=== PATIENT | male | born 1995 | race Caucasian/White ===

== ENCOUNTER 2018-10-27 10:15 | Outpatient (CLI) | payer OTHER ==
--- NOTE | 2018-10-27 12:58 | MRI ---
EXAM: MRI right thumb PROVIDED CLINICAL HISTORY: Thumb MCP injury COMPARISON: None FINDINGS: There is a prominently thickened and T2 hyperintense appearance to the distal, thumb phalangeal base aspects of the ulnar collateral ligament with well-defined insertional fibers not apparent. There is a focal area of T1 and T2 hypointensity interposed between the superficial margin of the intact ul supa collateral ligament and adjacent abductor insertion suspicious for Stener lesion. The radial collateral ligament appears intact. The thumb extensor and common flexor tendons appear in tact. There is a small thumb MCP joint effusion. Regional marrow and muscular signal appear normal. IMPRESSION: Findings compatible with thumb MCP ulnar collateral ligament tear with findings suspicious for Stener lesion.
== END 2018-10-27 10:16 | disposition home or self-care (01) ==
LOC: SCSMRI 10:15
PROVIDERS: ATTEND Orthopaedic Surgery Hand Surgery
DX: S63.641A Sprain of metacarpophalangeal joint of right thumb, initial encounter (principal)

== ENCOUNTER 2018-11-09 09:59 | Outpatient (CLI) | payer OTHER ==
[2018-11-09 17:04] LABS: #Basophils 0.1 thou/uL (0.0-0.2); #Eosinphils 0.3 thou/uL (0.0-0.7); #Lymphocytes 2.8 thou/uL (1.20-3.40); #Monocytes 0.7 thou/uL (0.11-0.59); #Neutrophils 4.4 thou/uL (1.40-6.50); %Basophils 0.8 % (0.0-1.0); %Eosinophils 3.6 % (0.0-10.0); %Lymphocytes 33.7 % (21.0-51.0); %Monocytes 8.2 % (0.0-10.0); %Neutrophils 53.8 % (42.0-75.0); Hemoglobin 15.6 g/dL (14.0-18.0); Mean Corpuscular HGB CONC 34.6 g/dL (32.0-36.0); Mean Corpuscular Hemoglobin 31.7 pg (27.0-31.0); Mean Corpuscular Volume 91.7 fL (78.0-98.0); Mean Platelet Volume 7.7 fL (7.4-10.4); Platelet Count 334 thou/uL (130-400); RBC Distribution Width 11.2 % (11.5-14.5); Red Blood Cell (RBC) Count 4.92 mill/uL (4.70-6.10); White Blood Cell (WBC) Count 8.2 thou/uL (4.8-10.8)
== END 2018-11-09 10:00 | disposition home or self-care (01) ==
LOC: LABBT 09:59
PROVIDERS: ATTEND Orthopaedic Surgery Hand Surgery
DX: Z01.812 Encounter for preprocedural laboratory examination (principal); S63.681A Other sprain of right thumb, initial encounter
CPT/HCPCS: 85025

== ENCOUNTER 2018-11-10 09:43 | Day surgery (SDC) | payer OTHER ==
[2018-11-09 15:57] VITALS: BMI 27.0
[2018-11-10] MEDS ORDERED: Bupivacaine HCl 0.5%/Epinephrine 1:200,000/PF 30 ml Vial ONE (10:51)
[2018-11-10] MEDS ORDERED: Midazolam HCl 2 mg/2 ml Vial ONE (11:30)
[2018-11-10] MEDS ORDERED: Fentanyl 100 MCG/2 ML VIAL ONE ×2 (11:31→13:08)
[2018-11-10] MEDS ORDERED: Ondansetron PF 4 MG/2 ML Vial ONE (11:37)
[2018-11-10] MEDS ORDERED: Lidocaine 1% PF 5 ML VIAL ONE (11:37)
[2018-11-10] MEDS ORDERED: Dexamethasone 20 MG/5 ML VIAL ONE (11:37)
[2018-11-10] MEDS ORDERED: PROPOFOL 200 MG/20 ML VIAL ONE (11:37)
[2018-11-10] MEDS ORDERED: Sodium Chloride 0.9% 10 ML ONE (13:01)
[2018-11-10] MEDS ORDERED: Bacitracin Zinc Ointment 30 gm TUBE ONE (13:01)
[2018-11-10] MEDS ORDERED: Betamet Acet/Betamet Na Ph 30 MG/5 ML VIAL ONE (13:02)
[2018-11-10] MEDS ORDERED: Famotidine/PF 20 mg/2ml Vial ONE (13:08)
--- NOTE | 2018-11-10 15:48 | RAD ---
XR FINGER RIGHT, MINIMUM 2 VIEWS: CLINICAL HISTORY: Right thumb MCP pinning. FINDINGS: Intraoperative views are performed with multiple overlying extrinsic artifacts. There is postoperativ e pinning of the first ray of the right hand. Surgical anchor placement at the base of the thumb proximal phalanx. Intraoperative views for right thumb MCP pending. Transcribed Date/Time: 11/10/2018 3:50 PM
[2018-11-10] MEDS ORDERED: Ketorolac Tromethamine 30 MG/ML VIAL ONE (15:54)
--- NOTE | 2018-11-13 11:53 | OP ---
DATE OF PROCEDURE: 11/10/2018 PREOPERATIVE DIAGNOSIS: Right complete ulnar collateral ligament tear. POSTOPERATIVE DIAGNOSIS: Right complete ulnar collateral ligament tear. FINDINGS: Ulnar collateral ligament tear completely ruptured from its origin, retracted approximately 2-3 mm with pseudo tendency in the previous site of insertion on the base of the proximal phalanx of the thumb, ulnar aspect. PROCEDURES PERFORMED: 1. Arthrotomy, joint. 2. Ulnar collateral ligament reconstruction back to bone using the following techniques. Primarily with Arthrex mini anchor and 2 sutures and then augmented with internal splinting using Prolene in a modified Iza through a tunnel with Fernando needles contralateral radial side and tied on the button. 3. Application of short-arm splint. COMPLICATIONS: None. TOURNIQUET TIME: minutes. BLOOD LOSS: Less than or equal to 10 mL. INDICATIONS FOR PROCEDURE: [id number] ulnar collateral ligament tear with instability. DESCRIPTION OF PROCEDURE: After successful general endotracheal anesthesia, the limb was prepped and draped. The patient had time-out done appropriately. The right side had been prepped and the site and side matched to consent along with the procedure. We made a curvilinear incision slightly more palmar at the MP joint then it was proximal distal to this. We carried it through skin and subcutaneous tissue and ulnar side and immediately identified the retinaculum and protected the digital and cutaneous branch dorsal nerve. We opened the retinaculum with Conway blade, dissected off the capsule and immediately saw the collateral ligament with some pseudo tendon attempted to heal itself at the insertion on the ulnar base of the proximal phalanx. We removed the scar tissue, and the mass of the ulnar collateral ligament. We clearly could still reach to 2 mm distal to the joint line, so we had adequate amount of tissue for reconstruction. Using a combination of a Crile and a small rongeur, we made a trough that was 2.5 mm wide, 2.5 mm deep and 1 cm long for the large rupture. We then placed the anchor in the distal 1/3 of trough and through the mid and dorsal 1/3 of the trough. We placed the [place] 3-0 Prolene and brought it out through the other side with Fernando needles, prepared to tie on the button. We also placed the heavy sutures through the palmar 1/3 of the lesion as well of the rupture as well. Once we had done, we then placed the joint approximately 20 degrees of ulnar deviation, pinned the joint under C-arm supervision and then tied all sutures. The patient then had the button with excellent tension, and we released the tourniquet, obtained hemostasis. We had pinned the joint and pin was cut and bent with 2-3 mm protruded. We then closed the retinaculum with interrupted 4-0 Vicryl, claudia braided and then closed the incision with a running 3-0 Monocryl and there were no complications. The patient left the operating room without evidence of anesthetic or operative complication in a splint that was applied. Job ID: [id number]
== END 2018-11-10 17:00 | disposition home or self-care (01) ==
LOC: SDC 09:43
PROVIDERS: ATTEND Orthopaedic Surgery Hand Surgery
PROC: 3E0T3BZ Introduction of Anesthetic Agent into Peripheral Nerves and Plexi, Percutaneous Approach (ICD-10-PCS; principal; 2018-11-10)
PROC: 0MU Bursae and Ligaments, Supplement (ICD-10-PCS; principal; 2018-11-10)
DX: S53.31XA Traumatic rupture of right ulnar collateral ligament, initial encounter (principal); S63.641A Sprain of metacarpophalangeal joint of right thumb, initial encounter; G89.18 Other acute postprocedural pain
CPT/HCPCS: 76000; C1713; J0670; J0690; J0702; J1100; J1885; J2001; J2250; J2405; J2704; J3010; J3490; S0028